=== PATIENT | female | born 1950 | race Two or more races ===

== ENCOUNTER 2022-10-25 22:40 | Emergency (ER) | payer OTHER ==
[~2022-10-25] VITALS: Ht 154.9 cm; Wt 59.1 kg
[2022-10-25 23:01] VITALS: TEMP 98.3
[2022-10-25] MEDS ORDERED: SODIUM CHLORIDE 0.9% 1,000 ML IV ONE (23:30)
[2022-10-25] MEDS ORDERED: MORPHINE SULFATE 2 MG/ML SYRINGE IVP ONE (23:30)
[2022-10-25 23:35] LABS: BASOPHILS % (AUTO) 0.6 % (0.0-2.0); HEMATOCRIT 38.1 % (36-46); HEMOGLOBIN 12.2 g/dL (12.0-16.0); LYMPHOCYTES # (AUTO) 2.2 K/uL (1.0-4.8); LYMPHOCYTES % (AUTO) 19.3 % (22.0-44.0); MEAN CORPUSCULAR HGB CONC 32.1 G/dL (31.0-37.0); MEAN CORPUSCULAR VOLUME 94 fL (80-100); MONOCYTES # (AUTO) 0.7 K/uL (0.1-1.0); MONOCYTES % (AUTO) 6.2 % (2.0-9.0); NEUTROPHILS # (AUTO) 6.6 K/uL (1.8-7.7); PLATELET COUNT (AUTO) 349 K/uL (150-450); RED BLOOD CELL COUNT(AUTO) 4.07 MIL/uL (4.00-5.20); RED CELL DISTRIBUTION WIDTH 13.6 % (11.5-14.5); WHITE BLOOD COUNT (AUTO) 11.4 K/uL (4.5-11.0)
[2022-10-25 23:37] LABS: EOSINOPHILS % (AUTO) 15.9 % (1.0-6.0)
[2022-10-25 23:46] LABS: ANION GAP 8 mmol/L (8-16); CARBON DIOXIDE 26 mmol/L (22-29); CHLORIDE 96 mmol/L (98-107); CREATININE 0.61 mg/dL (0.60-1.30); GLUCOSE,RANDOM 130 mg/dL (70-110); POTASSIUM 4.2 mmol/L (3.5-5.1); SODIUM SERUM 130 mmol/L (136-145); UREA NITROGEN, BLOOD 15 mg/dL (7-18)
[2022-10-25 23:47] LABS: CALCIUM, TOTAL 9.5 mg/dL (8.8-10.5); GLOMERULAR FILTR. RATE CALC > 60 mL/min (>60)
[2022-10-25 23:49] LABS: TROPONIN I-HIGH SENSITIVITY Less Than 4 ng/L (<51)
[2022-10-25 23:52] LABS: ALANINE AMINOTRANSFERASE 14 U/L (12-78); ALBUMIN 3.9 g/dL (3.4-5.0); ALKALINE PHOSPHATASE 96 U/L (46-116); ASPARTATE AMINOTRANSFERASE 17 U/L (15-37); BILIRUBIN,TOTAL 0.3 mg/dL (0.1-1.0); LIPASE 60 U/L (16-77); TOTAL PROTEIN, SERUM 8.7 g/dL (6.4-8.2)
[2022-10-26] MEDS ORDERED: SODIUM CHLORIDE 0.9% 100 ML ONE (00:26)
[2022-10-26] MEDS ORDERED: IOHEXOL 350 MG/ML 100 ML VIAL ONE (00:26)
[2022-10-26 02:22] LABS: APPEARANCE,URINE CLEAR (CLEAR); BILIRUBIN,URINE NEGATIVE (NEGATIVE); COLOR,URINE COLORLESS (YELLOW); GLUCOSE, URINE (UA) NEGATIVE (NEGATIVE); KETONES,URINE NEGATIVE (NEGATIVE); LEUKOCYTE ESTERASE ,URINE NEGATIVE (NEGATIVE); NITRATE,URINE NEGATIVE (NEGATIVE); OCCULT BLOOD,URINE NEGATIVE (NEGATIVE); PROTEIN,URINE TRACE mg/dL (NEGATIVE); UROBILINOGEN,URINE <=1.0 mg/dL (<=1.0)
[2022-10-26 02:52] LABS: RBC,URINE None Seen /HPF (0-2); WBC,URINE None Seen /HPF (0-5)
[2022-10-26 02:53] LABS: BACTERIA,URINE None Seen /HPF (None Seen); SQUAMOUS EPITHELIAL CELL,UR Rare /LPF (None Seen)
[2022-10-26] MEDS ORDERED: IBUP-1492 PO (03:01)
[2022-10-26] MEDS ORDERED: CYCL-448 PO (03:01)
[2022-10-26 03:17] VITALS: BP 139/74; PULSE 63; RESP 19
== END 2022-10-26 03:29 | disposition home or self-care (01) ==
LOC: EMS 22:43
DX: R07.89 Other chest pain (principal); E11.9 Type 2 diabetes mellitus without complications; E78.00 Pure hypercholesterolemia, unspecified; I10 Essential (primary) hypertension
CPT/HCPCS: 99285; 96374; 71045; 96361; 80053; 81001; 82962; 83690; 84484; 85025; 85379; 36415; 93005; 71275; J2270; J7030; Q9967; J7050

== ENCOUNTER 2023-03-07 19:17 | Emergency (ER) | payer OTHER ==
[~2023-03-07] VITALS: Ht 152.4 cm; Wt 61.3 kg
[~2023-03-07 19:17] MED LIST: CYCL-448 PO; IBUP-1492 PO
[2023-03-07 19:30] VITALS: TEMP 98.2
[2023-03-07] MEDS ORDERED: CALC-462 PO (19:37)
[2023-03-07] MEDS ORDERED: ATOR40TA71 PO (19:37)
[2023-03-07] MEDS ORDERED: DULO-114 PO (19:37)
[2023-03-07] MEDS ORDERED: FERR-72 PO (19:37)
[2023-03-07] MEDS ORDERED: HYDR200T76 PO (19:37)
[2023-03-07] MEDS ORDERED: METF-1211 PO (19:37)
[2023-03-07] MEDS ORDERED: AMLO5TAB66 PO (19:37)
[2023-03-07] MEDS ORDERED: ATEN-72 PO (19:37)
[2023-03-07] MEDS ORDERED: LOSA-382 PO (19:37)
[2023-03-07] MEDS ORDERED: ALEN70TA80 PO (19:37)
[2023-03-07 20:02] LABS: COVID AG,FIA SOURCE NASAL SWAB
[2023-03-07 20:18] LABS: BASOPHILS % (AUTO) 0.9 % (0.0-2.0); EOSINOPHILS % (AUTO) 10.2 % (1.0-6.0); HEMATOCRIT 36.5 % (36-46); HEMOGLOBIN 12.4 g/dL (12.0-16.0); LYMPHOCYTES # (AUTO) 1.1 K/uL (1.0-4.8); MEAN CORPUSCULAR HEMOGLOBIN 31.1 pg (26.0-34.0); MEAN CORPUSCULAR VOLUME 92 fL (80-100); MONOCYTES # (AUTO) 0.3 K/uL (0.1-1.0); MONOCYTES % (AUTO) 6.9 % (2.0-9.0); NEUTROPHILS # (AUTO) 2.9 K/uL (1.8-7.7); PLATELET COUNT (AUTO) 313 K/uL (150-450); RED BLOOD CELL COUNT(AUTO) 3.99 MIL/uL (4.00-5.20); RED CELL DISTRIBUTION WIDTH 12.8 % (11.5-14.5); WHITE BLOOD COUNT (AUTO) 4.9 K/uL (4.5-11.0)
[2023-03-07 20:21] LABS: APPEARANCE,URINE CLEAR (CLEAR); BILIRUBIN,URINE NEGATIVE (NEGATIVE); COLOR,URINE COLORLESS (YELLOW); GLUCOSE, URINE (UA) TRACE mg/dL (NEGATIVE); KETONES,URINE NEGATIVE (NEGATIVE); LEUKOCYTE ESTERASE ,URINE NEGATIVE (NEGATIVE); NITRATE,URINE NEGATIVE (NEGATIVE); OCCULT BLOOD,URINE SMALL (NEGATIVE); PROTEIN,URINE 300-600,SEE CONFIRM mg/dL (NEGATIVE); UROBILINOGEN,URINE <=1.0 mg/dL (<=1.0)
[2023-03-07 20:27] LABS: ANION GAP 10 mmol/L (8-16); CARBON DIOXIDE 28 mmol/L (22-29); CHLORIDE 95 mmol/L (98-107); GLOMERULAR FILTR. RATE CALC > 60 mL/min (>60); GLUCOSE,RANDOM 136 mg/dL (70-110); SODIUM SERUM 133 mmol/L (136-145); UREA NITROGEN, BLOOD 13 mg/dL (7-18)
[2023-03-07 20:31] LABS: INFLUENZA TYPE A NEGATIVE FOR TYPE A (NEGATIVE); INFLUENZA TYPE B NEGATIVE FOR TYPE B (NEGATIVE); SULFOSALICYLIC ACID,URINE 4+ (Negative)
[2023-03-07 20:32] LABS: BACTERIA,URINE Few /HPF (None Seen); SQUAMOUS EPITHELIAL CELL,UR Few /LPF (None Seen)
[2023-03-07 20:32] LABS: ALANINE AMINOTRANSFERASE 18 U/L (12-78); ALBUMIN 3.7 g/dL (3.4-5.0); ALKALINE PHOSPHATASE 96 U/L (46-116); ASPARTATE AMINOTRANSFERASE 22 U/L (15-37); BILIRUBIN,TOTAL 0.2 mg/dL (0.1-1.0); TOTAL PROTEIN, SERUM 8.4 g/dL (6.4-8.2)
[2023-03-07 20:34] LABS: TROPONIN I-HIGH SENSITIVITY 5 ng/L (<51)
[2023-03-07 20:55] LABS: SARS-COV2 (COVID) ANTIGEN,FIA Positive (Negative)
[2023-03-07 22:05] VITALS: BP 151/72; PULSE 69; RESP 16
[2023-03-07] MEDS ORDERED: ONDANSETRON HCL 4 MG/2 ML VIAL IVP ONE (22:30)
[2023-03-07] MEDS ORDERED: SODIUM CHLORIDE 0.9% 1,000 ML IV ONE (22:30)
[2023-03-07] MEDS ORDERED: ACETAMINOPHEN 325 MG TABLET PO ONE (22:30)
[2023-03-07] MEDS ORDERED: ONDA-104 PO (23:43)
[2023-03-07] MEDS ORDERED: ACET-3385 PO (23:43)
== END 2023-03-08 | disposition home or self-care (01) ==
LOC: EMS 19:17
DX: U07.1 COVID-19 (principal); E11.9 Type 2 diabetes mellitus without complications; E78.00 Pure hypercholesterolemia, unspecified; I10 Essential (primary) hypertension
CPT/HCPCS: 80053; 81001; 81002; 84484; 85025; 87804; 36415; 71045; 99285; 93005; 96361; 96374; 87426; J2405; J7030

== ENCOUNTER 2023-03-11 18:32 | Emergency (ER) | payer OTHER ==
[~2023-03-11] VITALS: Ht 157.5 cm; Wt 61.4 kg
[~2023-03-11 18:32] MED LIST changes: +ACET-3385 PO; +ALEN70TA80 PO; +AMLO5TAB66 PO; +ATEN-72 PO; +ATOR40TA71 PO; +CALC-462 PO; -CYCL-448 PO; +FERR-72 PO; -IBUP-1492 PO; +METF-1211 PO; +ONDA-104 PO
[2023-03-11 18:49] VITALS: TEMP 98.3
[2023-03-11] MEDS ORDERED: DICL100G60 TP (19:41)
[2023-03-11 21:50] LABS: HEMATOCRIT 36.2 % (36-46); HEMOGLOBIN 12.2 g/dL (12.0-16.0); MEAN CORPUSCULAR HEMOGLOBIN 31.2 pg (26.0-34.0); MEAN CORPUSCULAR HGB CONC 33.7 G/dL (31.0-37.0); MEAN CORPUSCULAR VOLUME 93 fL (80-100); PLATELET COUNT (AUTO) 383 K/uL (150-450); RED BLOOD CELL COUNT(AUTO) 3.91 MIL/uL (4.00-5.20); RED CELL DISTRIBUTION WIDTH 12.8 % (11.5-14.5); WHITE BLOOD COUNT (AUTO) 6.3 K/uL (4.5-11.0)
[2023-03-11 21:55] LABS: ANION GAP 12 mmol/L (8-16); CALCIUM, TOTAL 9.3 mg/dL (8.8-10.5); CARBON DIOXIDE 27 mmol/L (22-29); CHLORIDE 96 mmol/L (98-107); CREATININE 0.66 mg/dL (0.60-1.30); GLOMERULAR FILTR. RATE CALC > 60 mL/min (>60); GLUCOSE,RANDOM 109 mg/dL (70-110); POTASSIUM 4.2 mmol/L (3.5-5.1); SODIUM SERUM 135 mmol/L (136-145); UREA NITROGEN, BLOOD 10 mg/dL (7-18)
[2023-03-11 22:01] LABS: ALANINE AMINOTRANSFERASE 26 U/L (12-78); ALKALINE PHOSPHATASE 95 U/L (46-116); ASPARTATE AMINOTRANSFERASE 28 U/L (15-37); BILIRUBIN,TOTAL 0.3 mg/dL (0.1-1.0); LIPASE 62 U/L (16-77); TOTAL PROTEIN, SERUM 8.7 g/dL (6.4-8.2)
[2023-03-11 22:04] LABS: LACTIC ACID 0.6 mmol/L (0.4-2.0)
[2023-03-11 22:15] LABS: BAND NEUTROPHILS % (MANUAL) 1 % (0-5); BASOPHILS % (MANUAL) 2 % (0-2); EOSINOPHILS % (MANUAL) 12 % (1-6); LYMPHOCYTES % (MANUAL) 31 % (22-44); MONOCYTES % (MANUAL) 11 % (2-9); REACTIVE LYMPHOCYTES 1 % (0-0); SEGMENTED NEUTROPHILS % 42 % (40-70); TOTAL CELLS COUNTED 100
[2023-03-11 22:22] LABS: APPEARANCE,URINE CLEAR (CLEAR); BILIRUBIN,URINE NEGATIVE (NEGATIVE); COLOR,URINE COLORLESS (YELLOW); GLUCOSE, URINE (UA) NEGATIVE (NEGATIVE); KETONES,URINE NEGATIVE (NEGATIVE); LEUKOCYTE ESTERASE ,URINE TRACE (NEGATIVE); NITRATE,URINE NEGATIVE (NEGATIVE); OCCULT BLOOD,URINE NEGATIVE (NEGATIVE); PROTEIN,URINE NEGATIVE (NEGATIVE); SPECIFIC GRAVITIY, URINE 1.004 (1.003-1.030); UROBILINOGEN,URINE <=1.0 mg/dL (<=1.0)
[2023-03-11 22:31] LABS: BACTERIA,URINE None Seen /HPF (None Seen); RBC,URINE None Seen /HPF (0-2); SQUAMOUS EPITHELIAL CELL,UR None Seen /LPF (None Seen); WBC,URINE 0-2 /HPF (0-5)
[2023-03-11 22:49] LABS: TROPONIN I-HIGH SENSITIVITY 4 ng/L (<51)
[2023-03-12] MEDS ORDERED: PANTOPRAZOLE SODIUM 40 MG DR TABLET PO ONE
[2023-03-12 00:24] LABS: INFLUENZA A-RTPCR,COMBO NEGATIVE FOR FLU A (NEGATIVE); INFLUENZA B-RTPCR,COMBO NEGATIVE FOR FLU B (NEGATIVE); RESPIRATORY SYNCYTIAL VRS-PCR NEGATIVE (NEGATIVE); SARS COVID19 RTPCR, COMBO NEGATIVE (NEGATIVE)
[2023-03-12] MEDS ORDERED: PANT-31 PO (00:50)
[2023-03-12 01:06] VITALS: BP 143/75; PULSE 80; RESP 18
== END 2023-03-12 01:08 | disposition home or self-care (01) ==
LOC: EMS 18:34
DX: R10.9 Unspecified abdominal pain (principal); K29.70 Gastritis, unspecified, without bleeding; E11.9 Type 2 diabetes mellitus without complications; E78.00 Pure hypercholesterolemia, unspecified; I10 Essential (primary) hypertension; Z20.822 Contact with and (suspected) exposure to COVID-19
CPT/HCPCS: 99285; 0241U; 76700; 71045; 80053; 81001; 83605; 83690; 84484; 85025; 36415; 93005

== ENCOUNTER 2023-06-30 19:05 | Emergency (ER) | payer OTHER ==
[~2023-06-30] VITALS: Ht 152.4 cm; Wt 62.7 kg
[~2023-06-30 19:05] MED LIST changes: +DICL100G60 TP; +PANT-31 PO
[2023-06-30] MEDS ORDERED: HYDR200T38 PO (19:11)
[2023-06-30 19:27] VITALS: TEMP 97.3
[2023-06-30] MEDS ORDERED: ROMO210S SQ (19:43)
[2023-06-30] MEDS: ACETAMINOPHEN 500 MG TABLET PO ONE (19:56)
[2023-06-30] MEDS: BACITRACIN 0.9 GM PACKET OINTMENT TP ONE (19:56)
[2023-06-30] MEDS: PERTUSS(ACELL),DIPH,TET/PF 0.5 ML SYRINGE [ADULT] IM. ONE (19:57)
[2023-06-30 20:54] VITALS: BP 135/74; PULSE 71; RESP 16
== END 2023-06-30 20:54 | disposition home or self-care (01) ==
LOC: EMS 19:06
DX: S61.411A Laceration without foreign body of right hand, initial encounter (principal); E11.9 Type 2 diabetes mellitus without complications; E78.00 Pure hypercholesterolemia, unspecified; I10 Essential (primary) hypertension; K21.9 Gastro-esophageal reflux disease without esophagitis; X58.XXXA Exposure to other specified factors, initial encounter; Y93.89 Activity, other specified; Y92.89 Other specified places as the place of occurrence of the external cause; Y99.8 Other external cause status
CPT/HCPCS: 12002; 82962; 90471; 90715; 99283

== ENCOUNTER 2023-07-03 15:26 | Emergency (ER) | payer OTHER ==
[~2023-07-03] VITALS: Ht 152.4 cm; Wt 62.7 kg
[~2023-07-03 15:26] MED LIST changes: -ACET-3385 PO; +HYDR200T38 PO; -ONDA-104 PO; -PANT-31 PO; +ROMO210S SQ
[2023-07-03 15:31] VITALS: TEMP 98.3
[2023-07-03 15:45] LABS: GLUCOMETER DEV NAME(LOC) ERT.5; GLUCOSE,POINT OF CARE 99 MG/DL (70-110)
[2023-07-03 19:18] VITALS: BP 137/62; PULSE 76; RESP 16
== END 2023-07-03 20:48 | disposition home or self-care (01) ==
LOC: EMS 15:26
DX: S61.216D Laceration without foreign body of right little finger without damage to nail, subsequent encounter (principal); M19.90 Unspecified osteoarthritis, unspecified site; E11.9 Type 2 diabetes mellitus without complications; E78.00 Pure hypercholesterolemia, unspecified; I10 Essential (primary) hypertension; X58.XXXD Exposure to other specified factors, subsequent encounter
CPT/HCPCS: 82962; 99282